=== PATIENT | female | born 2000 | race Two or more races ===

== ENCOUNTER 2021-05-12 12:59 | Emergency (ER) | payer MEDICAID, OTHER ==
[~2021-05-12] VITALS: Ht 142.2 cm; Wt 43.1 kg
[2021-05-12 13:55] VITALS: BP 115/76
[2021-05-12 14:19] LABS: Basophils # (auto) 0 10 ^3/uL (0-0.2); Basophils % (auto) 0.3 % (0.0-2.0); Eosinophils # (auto) 0 10 ^3/uL (0-0.8); Eosinophils % (auto) 0.4 % (0.0-7.0); Hematocrit 41.6 % (36.0-46.0); Hemoglobin 14.4 g/dL (12.2-16.2); Lymphocytes # (auto) 1.4 10 ^3/uL (0.4-5.4); Lymphocytes % (auto) 12.9 % (10.0-50.0); Mean Corpuscular Hemoglobin 32.4 pg (28.0-32.0); Mean Corpuscular Hgb Conc. 34.6 g/dL (32.0-36.0); Mean Corpuscular Volume 93.5 fL (80.0-100.0); Monocytes # (auto) 0.5 10 ^3/uL (0-1.3); Monocytes % (auto) 4.8 % (0.0-12.0); Neutrophils # (auto) 8.8 10 ^3/uL (1.6-8.6); Neutrophils % (auto) 81.6 % (37.0-80.0); Nucleated Red Blood Cells % 0.1 %; Red Blood Cells 4.45 10^6/uL (4.0-5.20); Red Cell Distribution Width 12.2 % (11.8-14.3); White Blood Cell 10.7 10^3/uL (4.4-10.8)
[2021-05-12 14:31] LABS: Albumin 4.1 g/dL (3.4-5.0); BUN/Creatinine Ratio 8.3; Calcium 9.3 mg/dL (8.5-10.1); Potassium 3.9 mmol/L (3.5-5.1)
[2021-05-12 14:45] LABS: Bilirubin, Total 0.5 mg/dL (0.2-1.0)
[2021-05-12] MEDS ORDERED: FAMOTIDINE 20 MG TAB PO ONE (14:45)
[2021-05-12] MEDS ORDERED: ALUM & MAG HYDROX-SIMETH LIQ(MAALOX) 30 ML PO ONE (14:45)
[2021-05-12] MEDS ORDERED: LIDOCAINE VISCOUS 2% 15ML UD PO ONE (14:45)
[2021-05-12] MEDS ORDERED: DONNATAL 5ml ORAL Elix (BELLADONNA ALK-PHENOBARB) PO ONE (14:45)
[2021-05-12 14:59] LABS: Urine Bacteria FEW /hpf (None Seen); Urine Blood Negative /uL (Negative); Urine Mucus FEW (None Seen); Urine Specific Gravity 1.008 (1.001-1.035); Urine WBC 59 /hpf (0 - 5)
[2021-05-12] MEDS ORDERED: CIPR-173 PO (15:13)
[2021-05-12] MEDS ORDERED: IBUP600T27 PO (15:13)
== END 2021-05-12 15:16 | disposition home or self-care (01) ==
LOC: ER 12:59
DX: K80.20 Calculus of gallbladder without cholecystitis without obstruction (principal); N39.0 Urinary tract infection, site not specified; Z32.02 Encounter for pregnancy test, result negative
CPT/HCPCS: 36415; 76705; 80053; 81001; 81025; 83690; 85025